=== PATIENT | male | born 1975 | race Two or more races ===

== ENCOUNTER 2022-08-23 00:27 | Emergency (ER) | payer SELFPAY ==
[~2022-08-23] VITALS: Ht 165.1 cm; Wt 75.0 kg
[2022-08-23 00:38] VITALS: BP 144/111
--- NOTE | 2022-08-23 01:10 | NUR ---
LILIAN HAS BEEN CALLED. . LOG 1.
--- NOTE | 2022-08-23 01:12 | NUR ---
REGISTRATION SAW PT LEAVE AFTER HAVING HIS EKG COMPLETED.
== END 2022-08-23 01:58 | disposition left against medical advice (07) ==
LOC: EDBD 00:28 → ER 00:28
DX: Z04.1 Encounter for examination and observation following transport accident (principal); Z53.21 Procedure and treatment not carried out due to patient leaving prior to being seen by health care provider
CPT/HCPCS: 71045; 93005